=== PATIENT | male | born 1960 | race Caucasian/White ===

== ENCOUNTER → 2016-05-14 | Outpatient (CLI) | payer BC ==
[2016-05-14 13:35] LABS: ABSOLUTE LYMPHOCYTES (AUTO) 1.2 10^3/uL (0.5-4.7); ABSOLUTE MONOCYTES (AUTO) 1.2 10^3/uL (0.1-1.4); ABSOLUTE NEUT (AUTO) 7.7 10^3/uL (1.7-8.2); BASOPHILS % (AUTO) 0.2 % (0-2); EOSINOPHILS % (AUTO) 0.4 % (0-6); HEMATOCRIT 45.7 % (37.9-51.0); HEMOGLOBIN 15.5 g/dL (13.5-17.0); HGB HCT DIFFERENCE 0.8; LYMPHOCYTES % (AUTO) 12.3 % (13-45); MEAN CORPUSCULAR HEMOGLOBIN 30.1 pg (27.0-33.4); MEAN CORPUSCULAR HGB CONC 33.9 g/dL (32.0-36.0); MEAN CORPUSCULAR VOLUME 89 fl (80-97); MONOCYTES % (AUTO) 11.7 % (3-13); RED BLOOD COUNT 5.14 10^6/uL (4.35-5.55); RED CELL DISTRIBUTION WIDTH 13.3 % (11.5-14.0); SEGMENTED NEUTROPHILS % (AUTO) 75.4 % (42-78); WHITE BLOOD COUNT 10.2 10^3/uL (4.0-10.5)
[2016-05-14 13:47] LABS: ALANINE AMINOTRANSFERASE 38 U/L (21-72); ALBUMIN 4.4 g/dL (3.5-5.0); ALKALINE PHOSPHATASE 88 U/L (38-126); AMYLASE 55 U/L (30-110); ANION GAP 15 (5-19); ASPARTATE AMINO TRANSFERASE 22 U/L (17-59); BILIRUBIN,TOTAL 1.2 mg/dL (0.2-1.3); BLOOD UREA NITROGEN 13 mg/dL (7-20); CALCIUM 9.7 mg/dL (8.4-10.2); CARBON DIOXIDE 26 mmol/L (22-30); CHLORIDE 100 mmol/L (98-107); CREATININE RESULT 1.01 mg/dL (0.52-1.25); GLUCOSE 97 mg/dL (75-110); POTASSIUM 4.3 mmol/L (3.6-5.0); SODIUM 141.4 mmol/L (137-145); TOTAL PROTEIN 7.2 g/dL (6.3-8.2)
== END ==
LOC: OD 12:51
PROVIDERS: ATTEND Internal Medicine
DX: R10.13 Epigastric pain (principal)
CPT/HCPCS: 36415; 80053; 82150; 83690; 85025

== ENCOUNTER 2016-05-15 11:39 | Inpatient (IN) | payer BC ==
--- NOTE | 2016-05-15 12:09 | ER Document Report ---
ED Medical Screen (RME) - General Stated Complaint: ABDOMINAL PAIN Notes: 55 yo male c/o mid abdominal pain radiating through to back since Friday. no n/v, no fever. pt has MRI and blood work done yesterday, showing thrombus in right portal vein. sent to ED by Dr Walters for further evaluation. waiting for referral for Dr jha TRAVEL OUTSIDE OF THE [place] IN LAST 30 DAYS: No - Related Data Allergies/Adverse Reactions: No Known Allergies Allergy (Unverified 05/15/16 12:01) Physical Exam - Vital signs Vitals: Temp Pulse Resp BP Pulse Ox 98.4 F 107 H 16 133/87 H 98 05/15/16 11:55 05/15/16 11:55 05/15/16 11:55 05/15/16 11:55 05/15/16 11:55 Course - Vital Signs Vital signs: Temp Pulse Resp BP Pulse Ox 98.4 F 107 H 16 133/87 H 98 05/15/16 11:55 05/15/16 11:55 05/15/16 11:55 05/15/16 11:55 05/15/16 11:55
--- NOTE | 2016-05-15 14:10 | ER Document Report ---
[id number] OF THE [place] IN LAST 30 DAYS: No - HPI Patient complains to provider of: RLQ Abdominal Pain Onset: Other - 05/11/2016 Onset/Duration: Gradual, Worse Associated symptoms: denies: Diarrhea, Fever, Nausea, Vomiting Recently seen / treated by doctor: Yes - Dr. Walters <YANDEL BORGES - Last Filed: 05/16/16 00:31> <MARLON VALADEZ - Last Filed: 05/20/16 13:15> - General Chief Complaint: Abdominal Pain Stated Complaint: ABDOMINAL PAIN Notes: Patient is a 55-year-old male, with history of DVT, sent over to the emergency department by his primary care physician after having a CT scan that showed possible blood clot in an artery attaching to his liver. The initial plan was to send patient to Dr. Don, but there were no available appointments coming up. Patient states that Friday he began having abdominal pain in his right lower quadrant, and it has been progressively worsening. Patient's states that the pain has actually been going on for the past 3-4 weeks because he has been complaining about stomach pain when he eats. Patient denies nausea, vomiting, diarrhea, or fever, but patient's mentions that he had blood in his bowels approximately two weeks ago. Patient states that 3 kidney stones were found on the CT scan yesterday, and he is experiencing mild flank pain. Patient has not eaten for the past 2-3 days. (YANDEL BORGES) - Related Data Allergies/Adverse Reactions: No Known Allergies Allergy (Unverified 05/15/16 12:01) Past Medical History - General Information source: Patient - Social History Smoking Status: Never Smoker Chew tobacco use (# tins/day): No Frequency of alcohol use: None Drug Abuse: None Family History: Reviewed & Not Pertinent Patient has suicidal ideation: No Patient has homicidal ideation: No - Past Medical History Cardiac Medical History: Reports: Hx DVT Renal/ Medical History: Denies: Hx Peritoneal Dialysis Past Surgical History: Reports: Hx Inguinal Hernia - x2 - Immunizations Hx Diphtheria, Pertussis, Tetanus Vaccination: No <YANDEL BORGES - Last Filed: 05/16/16 00:31> Review of Systems - Review of Systems Constitutional: No symptoms reported. denies: Fever EENT: No symptoms reported Cardiovascular: No symptoms reported Respiratory: No symptoms reported Gastrointestinal: See HPI, Abdominal pain - RLQ, Blood streaked bowels - 2 weeks ago, Poor appetite. denies: Diarrhea, Nausea, Vomiting Genitourinary: No symptoms reported Male Genitourinary: No symptoms reported Musculoskeletal: No symptoms reported Skin: No symptoms reported Hematologic/Lymphatic: No symptoms reported Neurological/Psychological: No symptoms reported -: Yes All other systems reviewed and negative <YANDEL BORGES - Last Filed: 05/16/16 00:31> Physical Exam - Vital signs Interpretation: Tachycardic - General General appearance: Alert - HEENT Head: Normocephalic, Atraumatic Eyes: Normal Pupils: PERRL - Respiratory Respiratory status: No respiratory distress Chest status: Nontender Breath sounds: Normal Chest palpation: Normal - Cardiovascular Rhythm: Regular Heart sounds: Normal auscultation Murmur: No - Abdominal Distension: No distension Bowel sounds: Normal Tenderness: Tender - Tenderness over RLQ with no guarding, rebound, or rigidity.. No: Guarding, Rebound Organomegaly: No organomegaly - Back Back: CVA tenderness - Mild - Extremities General upper extremity: Normal inspection General lower extremity: Normal inspection - Neurological Neuro grossly intact: Yes Cognition: Normal Orientation: AAOx4 [place] Coma Scale Eye Opening: Spontaneous [place] Coma Scale Verbal: Oriented Keith Coma Scale Motor: Obeys Commands [place] Coma Scale Total: 15 Speech: Normal - Psychological Associated symptoms: Normal affect, Normal mood - Skin Skin Temperature: Warm Skin Moisture: Dry Skin Color: Normal <YANDEL BORGES - Last Filed: 05/16/16 00:31> Course - Laboratory Result Diagrams: 05/15/16 15:50 05/15/16 15:50 - Consults [facility] Time consulted: 17:27 <YANDEL BORGES - Last Filed: 05/16/16 00:31> - Laboratory Result Diagrams: 05/17/16 04:00 05/15/16 15:50 <MARLON VALADEZ - Last Filed: 05/20/16 13:15> - Re-evaluation Re-evalutation: 05/15/16 17:34 I personally performed the services described in the documentation, reviewed and edited the documentation which was dictated to my scribe in my presence, and it accurately records my words and actions. Patient presents a month spell with abdominal pain and outpatient CT scan that' s abnormal. Patient presented to his primary care physician with a week's worth of abdominal pain. CAT scan showed questionable decreased blood flow to the inferior aspect of the right lobe of the liver. And concerns for portal vein thrombosis he was supposed to follow up with Dr. Don they couldn't get an appointment today came to the ER instead. On exam examination he has mild right- sided tenderness no guarding rebound or rigidity I did an ultrasound which Dr. Bin Sotelo read as a superior mesentery vein thrombosis. I talked to Dr. Nathan Mcpherson said to go ahead and admit the patient on Lovenox consult the hospitalist and they'll do a hypercoagulable workup. (MARLON VALADEZ) - Vital Signs Vital signs: Temp Pulse Resp BP Pulse Ox 97.6 F 91 14 127/83 H 98 05/17/16 10:00 05/17/16 10:00 05/17/16 10:00 05/17/16 10:00 05/17/16 10:00 (YANDEL BORGES) (MARLON VALADEZ) - Laboratory Laboratory results interpreted by me: 05/15/16 05/15/16 15:10 15:50 WBC 10.8 H Lymphocytes % 11.8 L Absolute Neutrophils 8.3 H Urine Protein 100 H Urine Ketones 80 H Urine Blood SMALL H Urine Urobilinogen 2.0 H (MARLON VALADEZ) - Consults *Kuldeep Don Reason for consultation: 05/15/16 17:[address] Don about patient's ultrasound results that show clot to the superior mesenteric vein. Dr. Don recommends putting patient on Lovenox. 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
[2016-05-15] MEDS ORDERED: FENTANYL CITRATE INJ/PF 100 MCG/2 ML AMPUL IV ONE (15:05)
[2016-05-15] MEDS ORDERED: ONDANSETRON HCL INJ/PF 4 MG/2 ML SDV IV ONE (15:06)
[2016-05-15 15:25] LABS: APPEARANCE,URINE SLIGHTLY-CLOUDY; BILIRUBIN,URINE NEGATIVE (NEGATIVE); GLUCOSE, URINE NEGATIVE (NEGATIVE); KETONES,URINE 80 mg/dL (NEGATIVE); LEUKOCYTE ESTERASE,URINE NEGATIVE (NEGATIVE); NITRITE,URINE NEGATIVE (NEGATIVE); PROTEIN,URINE 100 mg/dL (NEGATIVE); URINE SPECIFIC GRAVITY 1.033
[2016-05-15 16:22] LABS: ABSOLUTE LYMPHOCYTES (AUTO) 1.3 10^3/uL (0.5-4.7); ABSOLUTE MONOCYTES (AUTO) 1.2 10^3/uL (0.1-1.4); ABSOLUTE NEUT (AUTO) 8.3 10^3/uL (1.7-8.2); BASOPHILS % (AUTO) 0.2 % (0-2); EOSINOPHILS % (AUTO) 0.5 % (0-6); HEMOGLOBIN 15.3 g/dL (13.5-17.0); HGB HCT DIFFERENCE 1.9; LYMPHOCYTES % (AUTO) 11.8 % (13-45); MEAN CORPUSCULAR HEMOGLOBIN 30.5 pg (27.0-33.4); MEAN CORPUSCULAR HGB CONC 34.7 g/dL (32.0-36.0); MEAN CORPUSCULAR VOLUME 88 fl (80-97); MONOCYTES % (AUTO) 10.6 % (3-13); RED CELL DISTRIBUTION WIDTH 13.2 % (11.5-14.0); SEGMENTED NEUTROPHILS % (AUTO) 76.9 % (42-78); WHITE BLOOD COUNT 10.8 10^3/uL (4.0-10.5)
[2016-05-15 16:41] LABS: ALANINE AMINOTRANSFERASE 34 U/L (21-72); ALBUMIN 4.3 g/dL (3.5-5.0); ALKALINE PHOSPHATASE 85 U/L (38-126); ANION GAP 14 (5-19); ASPARTATE AMINO TRANSFERASE 23 U/L (17-59); BILIRUBIN,TOTAL 1.1 mg/dL (0.2-1.3); BLOOD UREA NITROGEN 16 mg/dL (7-20); CALCIUM 9.5 mg/dL (8.4-10.2); CARBON DIOXIDE 26 mmol/L (22-30); CHLORIDE 101 mmol/L (98-107); CREATININE RESULT 0.99 mg/dL (0.52-1.25); GLUCOSE 90 mg/dL (75-110); LIPASE 109.9 U/L (23-300); POTASSIUM 4.2 mmol/L (3.6-5.0); SODIUM 140.5 mmol/L (137-145); TOTAL PROTEIN 7.6 g/dL (6.3-8.2)
[2016-05-15 18:30] LABS: PROTHROMBIN TIME 13.9 SEC (11.4-15.4)
--- NOTE | 2016-05-15 18:34 | PDOC H&P ---
History of Present Illness Admission Date/PCP: 05/15/16 18:02 NOAH LEWIS MD Patient complains of: Abdomen pain History of Present Illness: VISHAL GOODWIN is a 55 year old male with history of DVT, sent over to the emergency department by his primary care physician after having a CT scan that showed possible blood clot in an artery attaching to his liver. The initial plan was to send patient to Dr. Don, but there were no available appointments coming up. Patient states that Friday he began having abdominal pain in his right lower quadrant, and it has been progressively worsening. Patient's states that the pain has actually been going on for the past 3-4 weeks because he has been complaining about stomach pain when he eats. Patient denies nausea, vomiting, diarrhea, or fever, but patient's mentions that he had blood in his bowels approximately two weeks ago. Patient states that 3 kidney stones were found on the CT scan yesterday, and he is experiencing mild flank pain. Patient has not eaten for the past 2-3 days. Doppler ultrasound of the abdomen was performed in the emergency room and was consistent with main portal and superior mesenteric vein thrombosis Dr. Sr was consulted Lovenox subcutaneous was initiated at 1 mg per KG, and patient was admitted under hospitalist service to medical unit Past Medical History Cardiac Medical History: Reports: DVT Social History Smoking Status: Never Smoker Frequency of Alcohol Use: None Hx Recreational Drug Use: No - Advance Directive Resuscitation Status: Full Code Surrogate healthcare decision maker:: girlfriend Julianna Villa Family History Parental Family History Reviewed: Yes - father deceised diabetes "clots in legs " Children Family History Reviewed: Yes Sibling(s) Family History Reviewed.: Yes - one brother healthy Medication/Allergy Allergies/Adverse Reactions: No Known Allergies Allergy (Unverified 05/15/16 12:01) Review of Systems Constitutional: ABSENT: chills, fever(s), headache(s), weight gain, weight loss Eyes: ABSENT: visual disturbances Ears: ABSENT: hearing changes Cardiovascular: ABSENT: chest pain, dyspnea on exertion, edema, orthropnea, palpitations Respiratory: ABSENT: cough, hemoptysis Gastrointestinal: PRESENT: as per HPI, abdominal pain. ABSENT: diarrhea, hematemesis, hematochezia, nausea, vomiting Genitourinary: ABSENT: dysuria, hematuria Musculoskeletal: ABSENT: joint swelling Integumentary: ABSENT: rash, wounds Neurological: ABSENT: abnormal gait, abnormal speech, confusion, dizziness, focal weakness, syncope Psychiatric: ABSENT: anxiety, depression, homidical ideation, suicidal ideation Endocrine: ABSENT: cold intolerance, heat intolerance, polydipsia, polyuria Hematologic/Lymphatic: ABSENT: easy bleeding, easy bruising Physical Exam Vital Signs: Temp Pulse Resp BP Pulse Ox 98.4 F 107 H 16 133/87 H 98 05/15/16 11:55 05/15/16 11:55 05/15/16 11:55 05/15/16 11:55 05/15/16 11:55 General appearance: PRESENT: no acute distress, well-developed, well-nourished Head exam: PRESENT: atraumatic, normocephalic Eye exam: PRESENT: conjunctiva pink, EOMI, PERRLA. ABSENT: scleral icterus Ear exam: PRESENT: normal external ear exam Mouth exam: PRESENT: moist, tongue midline Neck exam: ABSENT: carotid bruit, JVD, lymphadenopathy, thyromegaly Respiratory exam: PRESENT: clear to auscultation delfino. ABSENT: rales, rhonchi, wheezes Cardiovascular exam: PRESENT: RRR. ABSENT: diastolic murmur, rubs, systolic murmur Pulses: PRESENT: normal dorsalis pedis pul Vascular exam: PRESENT: normal capillary refill GI/Abdominal exam: PRESENT: normal bowel sounds, soft. ABSENT: distended, guarding, mass, organolmegaly, rebound, tenderness Rectal exam: PRESENT: deferred Extremities exam: PRESENT: full ROM. ABSENT: calf tenderness, clubbing, pedal edema Neurological exam: PRESENT: alert, awake, oriented to person, oriented to place , oriented to time, oriented to situation, CN II-XII grossly intact. ABSENT: motor sensory deficit Psychiatric exam: PRESENT: appropriate affect, normal mood. ABSENT: homicidal ideation, suicidal ideation Skin exam: PRESENT: dry, intact, warm. ABSENT: cyanosis, rash Results Laboratory Results: Laboratory WBC 10.8 10^3/uL (4.0-10.5) H 05/15/16 15:50 RBC 5.00 10^6/uL (4.35-5.55) 05/15/16 15:50 Hgb 15.3 g/dL (13.5-17.0) 05/15/16 15:50 Hct 44.0 % (37.9-51.0) 05/15/16 15:50 MCV 88 fl (80-97) 05/15/16 15:50 MCH 30.5 pg (27.0-33.4) 05/15/16 15:50 MCHC 34.7 g/dL (32.0-36.0) 05/15/16 15:50 RDW 13.2 % (11.5-14.0) 05/15/16 15:50 Plt Count 182 10^3/uL (150-450) 05/15/16 15:50 Seg Neutrophils % 76.9 % (42-78) 05/15/16 15:50 Lymphocytes % 11.8 % (13-45) L 05/15/16 15:50 Monocytes % 10.6 % (3-13) 05/15/16 15:50 Eosinophils % 0.5 % (0-6) 05/15/16 15:50 Basophils % 0.2 % (0-2) 05/15/16 15:50 Absolute Neutrophils 8.3 10^3/uL (1.7-8.2) H 05/15/16 15:50 Absolute Lymphocytes 1.3 10^3/uL (0.5-4.7) 05/15/16 15:50 Absolute Monocytes 1.2 10^3/uL (0.1-1.4) 05/15/16 15:50 Absolute Eosinophils 0.0 10^3/uL (0.0-0.6) 05/15/16 15:50 Absolute Basophils 0.0 10^3/uL (0.0-0.2) 05/15/16 15:50 Sodium 140.5 mmol/L (137-145) 05/15/16 15:50 Potassium 4.2 mmol/L (3.6-5.0) 05/15/16 15:50 Chloride 101 mmol/L (98-107) 05/15/16 15:50 Carbon Dioxide 26 mmol/L (22-30) 05/15/16 15:50 Anion Gap 14 (5-19) 05/15/16 15:50 BUN 16 mg/dL (7-20) 05/15/16 15:50 Creatinine 0.99 mg/dL (0.52-1.25) 05/15/16 15:50 Est GFR ( Amer) > 60 (>60) 05/15/16 15:50 Est GFR (Non-Af Amer) > 60 (>60) 05/15/16 15:50 Glucose 90 mg/dL (75-110) 05/15/16 15:50 Calcium 9.5 mg/dL (8.4-10.2) 05/15/16 15:50 Total Bilirubin 1.1 mg/dL (0.2-1.3) 05/15/16 15:50 Direct Bilirubin 0.0 mg/dL (0.0-0.3) 05/15/16 15:50 AST 23 U/L (17-59) 05/15/16 15:50 ALT 34 U/L (21-72) 05/15/16 15:50 Alkaline Phosphatase 85 U/L (38-126) 05/15/16 15:50 Total Protein 7.6 g/dL (6.3-8.2) 05/15/16 15:50 Albumin 4.3 g/dL (3.5-5.0) 05/15/16 15:50 Lipase 109.9 U/L (23-300) 05/15/16 15:50 Urine Color DARK YELLOW 05/15/16 15:10 Urine Appearance SLIGHTLY-CLOUDY 05/15/16 15:10 Urine pH 5.0 (5.0-9.0) 05/15/16 15:10 Ur Specific [place] 1.033 05/15/16 15:10 Urine Protein 100 mg/dL (NEGATIVE) H 05/15/16 15:10 Urine Glucose (UA) NEGATIVE mg/dL (NEGATIVE) 05/15/16 15:10 Urine Ketones 80 mg/dL (NEGATIVE) H 05/15/16 15:10 Urine Blood SMALL (NEGATIVE) H 05/15/16 15:10 Urine Nitrite NEGATIVE (NEGATIVE) 05/15/16 15:10 Urine Bilirubin NEGATIVE (NEGATIVE) 05/15/16 15:10 Urine Urobilinogen 2.0 mg/dL (<2.0) H 05/15/16 15:10 Ur Leukocyte Esterase NEGATIVE (NEGATIVE) 05/15/16 15:10 Urine WBC (Auto) 4 /HPF 05/15/16 15:10 Urine RBC (Auto) 1 /HPF 05/15/16 15:10 U Hyaline Cast (Auto) 2 /LPF 05/15/16 15:10 Urine Bacteria (Auto) TRACE /HPF 05/15/16 15:10 Urine Mucus (Auto) MANY /LPF 05/15/16 15:10 Urine Ascorbic Acid NEGATIVE (NEGATIVE) 05/15/16 15:10 Impressions: Abdomen Ultrasound 05/15/16 15:04 IMPRESSION: There is echogenic material in the main portal vein and proximal right portal vein with hepatofugal flow present in the right portal vein, lack of color Doppler flow was identified in the main portal vein and superior mesenteric vein. 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 Assessment & Plan - Diagnosis (1) Venous thromboembolism in patient 41 to 60 years of age Is this a current diagnosis for this admission?: YesPlan: second episode patient had lower extremity DVT in past will initiate lovenox SC wup in progress (2) Hypercoagulable state Is this a current diagnosis for this admission?: YesPlan: work up ordered patient will be evaluated in am by Dr Sr - Time Time Spent: 50 to 70 Minutes - Inpatient Certification Based on my medical assessment, after consideration of the patient's comorbidities, presenting symptoms, or acuity I expect that the services needed warrant INPATIENT care.: Yes I certify that my determination is in accordance with my understanding of Medicare's requirements for reasonable and necessary INPATIENT services [42 CFR 412.3e].: Yes Medical Necessity: Need Close Monitoring Due to Risk of Patient Decompensation
[2016-05-15] MEDS ORDERED: KETOROLAC TROMETHAMINE INJ/PF 30 MG/1 ML SDV IV PRN (21:24)
[2016-05-15] MEDS ORDERED: ACETAMINOPHEN 325 MG TABLET PO PRN (21:24)
[2016-05-15] MEDS: MORPHINE SULFATE 10 MG/ML INJ IV PRN (22:00)
[2016-05-15] MEDS: ENOXAPARIN SODIUM INJ 100 MG/1 ML DISP.SYRIN SUBCUT SCH (22:00)
--- NOTE | 2016-05-16 08:18 | PDOC CONSULTATION ---
Consultation Consult Date: 05/16/16 Attending physician:: CLARICE WONG Consult reason:: Idiopathic portal vein thrombosis History of Present Illness Admission Date/PCP: 05/15/16 18:20 NOAH LEWIS MD Patient complains of: abd pain, found to have Idiopathic portal vein thrombosis History of Present Illness: 55-year-old male who was found to have idiopathic portal vein thrombosis. He has been having abdominal pain right upper quadrant and epigastric ongoing now for about 5 days, he tells me his girlfriend was mentioning that he been having pain may be longer than that, ultimately he went to see his PCP, who ordered a CT scan of the abdomen pelvis with and without contrast, this is done at Dr. Agee's office, this indicated area of decreased flow in the inferior aspect of the right liver, concern of portal vein thrombosis, there is no mass noted anywhere, there didn't seem to be any evidence of cancer, however there is some fullness of the pancreatic head. He hasn't had any weight loss over the last year. However over the last 5 days he does remember the pain was somewhat postprandial. He has had a superficial vein thrombosis in 2016 and was treated with a 3 month course of Eliquis, he had subsequent ultrasound which indicated complete clearing of the thrombosis. He wasn't on any blood thinner and he presented today. Here, abdominal ultrasound with Doppler was done, this did confirm the portal vein thrombosis, liver looks normal in appearance. There is no other abnormality noted. Of note, he is a never drinker never smoker. Past Medical History Cardiac Medical History: Reports: DVT Past Surgical History Past Surgical History: Reports: Herniorrhaphy Social History Smoking Status: Never Smoker Frequency of Alcohol Use: None Hx Recreational Drug Use: No Hx Prescription Drug Abuse: No - Advance Directive Resuscitation Status: Full Code Family History Family History: Reviewed & Not Pertinent, Other - No thrombosis history and family Parental Family History Reviewed: Yes Children Family History Reviewed: Yes Sibling(s) Family History Reviewed.: Yes Medication/Allergy Home Medications: No Home Medications 05/15/16 Allergies/Adverse Reactions: No Known Allergies Allergy (Unverified 05/15/16 12:01) Review of Systems Constitutional: ABSENT: chills, fever(s), headache(s), weight gain, weight loss Eyes: ABSENT: visual disturbances Ears: ABSENT: hearing changes Cardiovascular: ABSENT: chest pain, dyspnea on exertion, edema, orthropnea, palpitations Respiratory: ABSENT: cough, hemoptysis Gastrointestinal: PRESENT: abdominal pain Genitourinary: ABSENT: dysuria, hematuria Musculoskeletal: ABSENT: joint swelling Integumentary: ABSENT: rash, wounds Neurological: ABSENT: abnormal gait, abnormal speech, confusion, dizziness, focal weakness, syncope Psychiatric: ABSENT: anxiety, depression, homidical ideation, suicidal ideation Endocrine: ABSENT: cold intolerance, heat intolerance, polydipsia, polyuria Hematologic/Lymphatic: ABSENT: easy bleeding, easy bruising Physical Exam Vital Signs: Temp Pulse Resp BP Pulse Ox 98.8 F 92 18 128/87 H 100 05/16/16 03:28 05/16/16 03:28 05/16/16 03:28 05/16/16 03:28 05/16/16 03:28 Intake & Output 05/15/16 05/16/16 05/17/16 06:59 06:59 06:59 Weight 86.7 kg General appearance: PRESENT: no acute distress, well-developed, well-nourished Head exam: PRESENT: atraumatic, normocephalic Eye exam: PRESENT: conjunctiva pink, EOMI, PERRLA. ABSENT: scleral icterus Ear exam: PRESENT: normal external ear exam Mouth exam: PRESENT: moist, tongue midline Neck exam: ABSENT: carotid bruit, JVD, lymphadenopathy, thyromegaly Respiratory exam: PRESENT: clear to auscultation delfino. ABSENT: rales, rhonchi, wheezes Cardiovascular exam: PRESENT: RRR. ABSENT: diastolic murmur, rubs, systolic murmur Pulses: PRESENT: normal dorsalis pedis pul Vascular exam: PRESENT: normal capillary refill GI/Abdominal exam: PRESENT: normal bowel sounds, soft. ABSENT: distended, guarding, mass, organolmegaly, rebound, tenderness Rectal exam: PRESENT: deferred Extremities exam: PRESENT: full ROM. ABSENT: calf tenderness, clubbing, pedal edema Neurological exam: PRESENT: alert, awake, oriented to person, oriented to place , oriented to time, oriented to situation, CN II-XII grossly intact. ABSENT: motor sensory deficit Psychiatric exam: PRESENT: appropriate affect, normal mood. ABSENT: homicidal ideation, suicidal ideation Skin exam: PRESENT: dry, intact, warm. ABSENT: cyanosis, rash Results Impressions: Abdomen Ultrasound 05/15/16 15:04 IMPRESSION: There is echogenic material in the main portal vein and proximal right portal vein with hepatofugal flow present in the right portal vein, lack of color Doppler flow was identified in the main portal vein and superior mesenteric vein. 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 Status: Image reviewed by me Assessment & Plan - Diagnosis (1) Portal vein thrombosis Is this a current diagnosis for this admission?: YesPlan: Idiopathic at present, I see that the hypercoagulable workup has been sent, as an outpatient I will also send for myeloproliferative workup as well as PNH workup. Continued present with Lovenox, ultimately would like to like to transition him to a newer anticoagulants such as his Xarelto or Eliquis. We can advance his diet as tolerated. Unsure of what the "fullness" in the pancreatic head means, if his pain subsides with anticoagulation alone, then we can work that up as an outpatient. However if the pain persists over the next 24-48 hours, we may want to do something like an MRCP. - Time Time Spent: Greater than 70 Minutes Critical Time spent with patient: 35 or more minutes - Inpatient Certification Based on my medical assessment, after consideration of the patient's comorbidities, presenting symptoms, or acuity I expect that the services needed warrant INPATIENT care.: Yes I certify that my determination is in accordance with my understanding of Medicare's requirements for reasonable and necessary INPATIENT services [42 CFR 412.3e].: Yes Medical Necessity: Need For IV Fluids, Need for Pain Control, Need for Surgery
[2016-05-16] MEDS: ENOXAPARIN SODIUM INJ 100 MG/1 ML DISP.SYRIN SUBCUT SCH ×2 (09:32→21:48)
--- NOTE | 2016-05-16 16:59 | PDOC PROGRESS REPORT ---
Subjective Progress Note for:: 05/16/16 Subjective:: Patient's abdominal pain has improved ,he is feeling well He has no fever no chills; a workup is being completed Patient will have an MRI of his abdomen was IV contrast today He is still on Lovenox subcutaneous to be switched tomorrow to Eliquis Physical Exam Vital Signs: Temp Pulse Resp BP Pulse Ox 98.2 F 94 14 126/74 H 100 05/16/16 15:38 05/16/16 15:38 05/16/16 15:38 05/16/16 15:38 05/16/16 15:38 Intake & Output 05/15/16 05/16/16 05/17/16 00:59 00:59 00:59 Intake Total 0 Balance 0 Weight 86.7 kg 86.7 kg General appearance: PRESENT: no acute distress, well-developed, well-nourished Head exam: PRESENT: atraumatic, normocephalic Eye exam: PRESENT: conjunctiva pink, EOMI, PERRLA. ABSENT: scleral icterus Ear exam: PRESENT: normal external ear exam Mouth exam: PRESENT: moist, tongue midline Neck exam: ABSENT: carotid bruit, JVD, lymphadenopathy, thyromegaly Respiratory exam: PRESENT: clear to auscultation delfino. ABSENT: rales, rhonchi, wheezes Cardiovascular exam: PRESENT: RRR. ABSENT: diastolic murmur, rubs, systolic murmur Pulses: PRESENT: normal dorsalis pedis pul Vascular exam: PRESENT: normal capillary refill GI/Abdominal exam: PRESENT: normal bowel sounds, soft. ABSENT: distended, guarding, mass, organolmegaly, rebound, tenderness Rectal exam: PRESENT: deferred Extremities exam: PRESENT: full ROM. ABSENT: calf tenderness, clubbing, pedal edema Neurological exam: PRESENT: alert, awake, oriented to person, oriented to place , oriented to time, oriented to situation, CN II-XII grossly intact. ABSENT: motor sensory deficit Psychiatric exam: PRESENT: appropriate affect, normal mood. ABSENT: homicidal ideation, suicidal ideation Skin exam: PRESENT: dry, intact, warm. ABSENT: cyanosis, rash Results Laboratory Results: Labs- All tests 24 hr 05/15/16 15:50 PT 13.9 INR 1.04 Labs- Entire Visit 05/15/16 05/15/16 05/15/16 15:10 15:50 15:50 WBC 10.8 H RBC 5.00 Hgb 15.3 Hct 44.0 MCV 88 MCH 30.5 MCHC 34.7 RDW 13.2 Plt Count 182 Seg Neutrophils % 76.9 Lymphocytes % 11.8 L Monocytes % 10.6 Eosinophils % 0.5 Basophils % 0.2 Absolute Neutrophils 8.3 H Absolute Lymphocytes 1.3 Absolute Monocytes 1.2 Absolute Eosinophils 0.0 Absolute Basophils 0.0 PT INR Sodium 140.5 Potassium 4.2 Chloride 101 Carbon Dioxide 26 Anion Gap 14 BUN 16 Creatinine 0.99 Est GFR ( Amer) > 60 Est GFR (Non-Af Amer) > 60 Glucose 90 Calcium 9.5 Total Bilirubin 1.1 Direct Bilirubin 0.0 AST 23 ALT 34 Alkaline Phosphatase 85 Total Protein 7.6 Albumin 4.3 Lipase 109.9 Urine Color DARK YELLOW Urine Appearance SLIGHTLY-CLOUDY Urine pH 5.0 Ur Specific [place] 1.033 Urine Protein 100 H Urine Glucose (UA) NEGATIVE Urine Ketones 80 H Urine Blood SMALL H Urine Nitrite NEGATIVE Urine Bilirubin NEGATIVE Urine Urobilinogen 2.0 H Ur Leukocyte Esterase NEGATIVE Urine WBC (Auto) 4 Urine RBC (Auto) 1 U Hyaline Cast (Auto) 2 Urine Bacteria (Auto) TRACE Urine Mucus (Auto) MANY Urine Ascorbic Acid NEGATIVE 05/15/16 15:50 WBC RBC Hgb Hct MCV MCH MCHC RDW Plt Count Seg Neutrophils % Lymphocytes % Monocytes % Eosinophils % Basophils % Absolute Neutrophils Absolute Lymphocytes Absolute Monocytes Absolute Eosinophils Absolute Basophils PT 13.9 INR 1.04 Sodium Potassium Chloride Carbon Dioxide Anion Gap BUN Creatinine Est GFR ( Amer) Est GFR (Non-Af Amer) Glucose Calcium Total Bilirubin Direct Bilirubin AST ALT Alkaline Phosphatase Total Protein Albumin Lipase Urine Color Urine Appearance Urine pH Ur Specific Franklin Urine Protein Urine Glucose (UA) Urine Ketones Urine Blood Urine Nitrite Urine Bilirubin Urine Urobilinogen Ur Leukocyte Esterase Urine WBC (Auto) Urine RBC (Auto) U Hyaline Cast (Auto) Urine Bacteria (Auto) Urine Mucus (Auto) Urine Ascorbic Acid 05/15/16 05/15/16 05/16/16 21:30 21:30 10:40 Functional Protein S Pending Free Protein S Pending Total Protein S Pending Antithrombin III Activ Pending Factor V Activity Pending Anti-Phospholip Syndrome Pending Factor II DNA Analysis Pending Fac II Additional Info Pending Impressions: Abdomen Ultrasound 05/15/16 15:04 IMPRESSION: There is echogenic material in the main portal vein and proximal right portal vein with hepatofugal flow present in the right portal vein, lack of color Doppler flow was identified in the main portal vein and superior mesenteric vein. 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 Assessment & Plan - Diagnosis (1) Venous thromboembolism in patient 41 to 60 years of age Is this a current diagnosis for this admission?: Yes (2) Hypercoagulable state Is this a current diagnosis for this admission?: Yes - Time Time Spent with patient: Continue Lovenox we will initiate Eliquis in a.m. and discharge patient if stable to follow-up with Dr. Sr Time Spent with patient: 15-24 minutes
[2016-05-16] MEDS: MORPHINE SULFATE 10 MG/ML INJ IV PRN (19:06)
[2016-05-17 05:00] LABS: HEMATOCRIT 41.8 % (37.9-51.0); HEMOGLOBIN 14.3 g/dL (13.5-17.0); HGB HCT DIFFERENCE 1.1; MEAN CORPUSCULAR HEMOGLOBIN 30.2 pg (27.0-33.4); MEAN CORPUSCULAR HGB CONC 34.3 g/dL (32.0-36.0); MEAN CORPUSCULAR VOLUME 88 fl (80-97); RED BLOOD COUNT 4.75 10^6/uL (4.35-5.55); WHITE BLOOD COUNT 7.2 10^3/uL (4.0-10.5)
--- NOTE | 2016-05-17 08:21 | PDOC PROGRESS REPORT ---
Subjective Progress Note for:: 05/17/16 Subjective:: Pt w/ post prandial pain yesterday. Feels better today Physical Exam Vital Signs: Temp Pulse Resp BP Pulse Ox 98.2 F 94 14 126/74 H 100 05/16/16 15:38 05/16/16 15:38 05/16/16 15:38 05/16/16 15:38 05/16/16 15:38 Intake & Output 05/16/16 05/17/16 05/18/16 06:59 06:59 06:59 Intake Total 490 Balance 490 Weight 86.7 kg 85.9 kg General appearance: PRESENT: no acute distress, well-developed, well-nourished Head exam: PRESENT: atraumatic, normocephalic Eye exam: PRESENT: conjunctiva pink, EOMI, PERRLA. ABSENT: scleral icterus Ear exam: PRESENT: normal external ear exam Mouth exam: PRESENT: moist, tongue midline Neck exam: ABSENT: carotid bruit, JVD, lymphadenopathy, thyromegaly Respiratory exam: PRESENT: clear to auscultation delfino. ABSENT: rales, rhonchi, wheezes Cardiovascular exam: PRESENT: RRR. ABSENT: diastolic murmur, rubs, systolic murmur Pulses: PRESENT: normal dorsalis pedis pul Vascular exam: PRESENT: normal capillary refill GI/Abdominal exam: PRESENT: normal bowel sounds, soft. ABSENT: distended, guarding, mass, organolmegaly, rebound, tenderness Rectal exam: PRESENT: deferred Extremities exam: PRESENT: full ROM. ABSENT: calf tenderness, clubbing, pedal edema Neurological exam: PRESENT: alert, awake, oriented to person, oriented to place , oriented to time, oriented to situation, CN II-XII grossly intact. ABSENT: motor sensory deficit Psychiatric exam: PRESENT: appropriate affect, normal mood. ABSENT: homicidal ideation, suicidal ideation Skin exam: PRESENT: dry, intact, warm. ABSENT: cyanosis, rash Results Laboratory Results: 05/17/16 04:00 05/17/16 04:00 WBC 7.2 RBC 4.75 Hgb 14.3 Hct 41.8 MCV 88 MCH 30.2 MCHC 34.3 RDW 13.0 Plt Count 195 Impressions: Abdomen Ultrasound 05/15/16 15:04 IMPRESSION: There is echogenic material in the main portal vein and proximal right portal vein with hepatofugal flow present in the right portal vein, lack of color Doppler flow was identified in the main portal vein and superior mesenteric vein. 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 Abdomen MRI 05/16/16 09:46 IMPRESSION: 1. As seen on CT, there is portal vein thrombosis. Probable cavernous transformation. Fairly extensive superior mesenteric thrombosis is present as well, with associated mesenteric edema. Splenic vein patent. Homogeneous liver. 2. No pancreatic mass. Status: Image reviewed by me Assessment & Plan - Diagnosis (1) Portal vein thrombosis Is this a current diagnosis for this admission?: YesPlan: MRCP negative for pancreatic mass, just indicated extensive thrombosis, w/u pending. Ok from heme standpoint to d/c home w/ eliquis 10mg BID x 7 days then 5mg BID. Plan for further w/u as outpt. Will need opiate rx on d/c also. Today spent 30min on discussion. - Time Time Spent with patient: 25-34 minutes Critical Time spent with patient: 25-34 minutes Within: within 24 hours
[2016-05-17 08:53] VITALS: BP 127/83
[2016-05-17] MEDS ORDERED: APIXABAN 5 MG TABLET PO ONE (09:15)
--- NOTE | 2016-05-17 15:45 | PDOC DISCHARGE SUMMARY ---
General - Admit/Disc Date/PCP Admission Date/Primary Care Provider: 05/15/16 18:20 NOAH LEWIS MD Discharge Date: 05/17/16 - Discharge Diagnosis (1) Venous thromboembolism in patient 41 to 60 years of age Is this a current diagnosis for this admission?: YesSummary: Patient was treated with lovenox SC, and discharged on eliquis the abdominal pain persisted but he was able to tolerate a light diet (2) Hypercoagulable state Is this a current diagnosis for this admission?: YesSummary: work up was initiated Patient to be followed as outpatient by Dr Sr - Additional Information Resuscitation Status: Full Code Discharge Diet: As Tolerated Discharge Activity: Activity As Tolerated Home Medications: Apixaban [Eliquis] 5 mg PO BID #60 tablet 05/17/16 Apixaban [Eliquis] 10 mg PO BID #14 tablet 05/17/16 Oxycodone HCl/Acetaminophen [Percocet 5-325 mg Tablet] 1 tab PO Q4HP PRN #30 tab 05/17/16 Polyethylene Glycol 3350 [Miralax Powder 17 gm/Packet] 17 gm PO DAILY #30 powd.pack 05/17/16 Tramadol HCl [Ultram 50 mg Tablet] 50 mg PO Q6HP PRN #30 tablet 05/17/16 History of Present Illness Patient complains of: abdominal pain History of Present Illness: VISHAL GOODWIN is a 55 year old male with history of DVT, sent over to the emergency department by his primary care physician after having a CT scan that showed possible blood clot in an artery attaching to his liver. The initial plan was to send patient to Dr. Don, but there were no available appointments coming up. Patient states that Friday he began having abdominal pain in his right lower quadrant, and it has been progressively worsening. Patient's states that the pain has actually been going on for the past 3-4 weeks because he has been complaining about stomach pain when he eats. Patient denies nausea, vomiting, diarrhea, or fever, but patient's mentions that he had blood in his bowels approximately two weeks ago. Patient states that 3 kidney stones were found on the CT scan yesterday, and he is experiencing mild flank pain. Patient has not eaten for the past 2-3 days. Doppler ultrasound of the abdomen was performed in the emergency room and was consistent with main portal and superior mesenteric vein thrombosis Dr. Sr was consulted Lovenox subcutaneous was initiated at 1 mg per KG, and patient was admitted under hospitalist service to medical unit Hospital Course Hospital Course: see above Physical Exam Vital Signs: Temp Pulse Resp BP Pulse Ox 97.6 F 91 14 127/83 H 98 05/17/16 10:00 05/17/16 10:00 05/17/16 10:00 05/17/16 10:00 05/17/16 10:00 Intake & Output 05/16/16 05/17/16 05/18/16 00:59 00:59 00:59 Intake Total 490 Balance 490 Weight 86.7 kg 85.9 kg General appearance: PRESENT: no acute distress, well-developed, well-nourished Head exam: PRESENT: atraumatic, normocephalic Eye exam: PRESENT: conjunctiva pink, EOMI, PERRLA. ABSENT: scleral icterus Ear exam: PRESENT: normal external ear exam Mouth exam: PRESENT: moist, tongue midline Neck exam: ABSENT: carotid bruit, JVD, lymphadenopathy, thyromegaly Respiratory exam: PRESENT: clear to auscultation delfino. ABSENT: rales, rhonchi, wheezes Cardiovascular exam: PRESENT: RRR. ABSENT: diastolic murmur, rubs, systolic murmur Pulses: PRESENT: normal dorsalis pedis pul Vascular exam: PRESENT: normal capillary refill GI/Abdominal exam: PRESENT: normal bowel sounds, soft. ABSENT: distended, guarding, mass, organolmegaly, rebound, tenderness Rectal exam: PRESENT: deferred Extremities exam: PRESENT: full ROM. ABSENT: calf tenderness, clubbing, pedal edema Neurological exam: PRESENT: alert, awake, oriented to person, oriented to place , oriented to time, oriented to situation, CN II-XII grossly intact. ABSENT: motor sensory deficit Psychiatric exam: PRESENT: appropriate affect, normal mood. ABSENT: homicidal ideation, suicidal ideation Skin exam: PRESENT: dry, intact, warm. ABSENT: cyanosis, rash Results Laboratory Results: 05/17/16 04:00 05/17/16 04:00 WBC 7.2 RBC 4.75 Hgb 14.3 Hct 41.8 MCV 88 MCH 30.2 MCHC 34.3 RDW 13.0 Plt Count 195 05/15/16 05/15/16 05/16/16 21:30 21:30 10:40 Functional Protein S Pending Free Protein S Pending Total Protein S Pending Antithrombin III Activ Pending Factor V Activity Pending Anti-Phospholip Syndrome Pending Factor II DNA Analysis Pending Fac II Additional Info Pending Impressions: Abdomen Ultrasound 05/15/16 15:04 IMPRESSION: There is echogenic material in the main portal vein and proximal right portal vein with hepatofugal flow present in the right portal vein, lack of color Doppler flow was identified in the main portal vein and superior mesenteric vein. 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 Abdomen MRI 05/16/16 09:46 IMPRESSION: 1. As seen on CT, there is portal vein thrombosis. Probable cavernous transformation. Fairly extensive superior mesenteric thrombosis is present as well, with associated mesenteric edema. Splenic vein patent. Homogeneous liver. 2. No pancreatic mass. Plan Discharge Plan: discharged home Follow up with Dr Sr
[2016-05-17 21:07] LABS: PROTEIN S FREE 97 % (57-157)
[2016-05-18 11:29] LABS: PROTEIN S FUNCTIONAL 77 % (63-140); PROTEIN S TOTAL 194 % (60-150)
[2016-05-19 07:50] LABS: ANTITHROMBIN III ACTIVITY 101 % (75-135); FACTOR V ACTIVITY 107 % (70-150)
== END 2016-05-17 10:30 | disposition home or self-care (01) | DRG 442 ==
LOC: ER 11:39 → UNDOADMIN 18:02 → EH 18:02 → 5 22:52
PROVIDERS: ADMIT Emergency Medicine; ATTEND Emergency Medicine
DX: I81 Portal vein thrombosis (principal); D68.59 Other primary thrombophilia; Z86.718 Personal history of other venous thrombosis and embolism; N20.0 Calculus of kidney
CPT/HCPCS: 36415; 74183; 76705; 80053; 81001; 81240; 83690; 85025; 85027; 85220; 85300; 85305; 85306; 85597; 85598; 85610; 85613; 85730; 85732; 86146; 86147; 86148; 86849; 93976; 96374; 96375; 99285; A9576; J1650; J2270; J2405; J3010

== ENCOUNTER → 2018-09-24 | Outpatient (CLI) | payer BC ==
--- NOTE | 2018-09-24 16:11 | RADIOLOGY REPORT (SQ) ---
EXAM DESCRIPTION: VENOUS UNILATERAL LOWER COMPLETED DATE/TIME: 09/24/2018 2:38 pm REASON FOR STUDY: LLE SWELLING, HX OF PORTAL V THROMBOSIS I81 PORTAL VEIN THROMBOSIS COMPARISON: None. TECHNIQUE: Dynamic and static last scale and color images acquired of the left leg venous system. Se lected spectral images acquired with additional compression and augmentation maneuvers. The contralat eral common femoral vein and saphenofemoral junction were also imaged. Images stored on PACS. LIMITATIONS: None. FINDINGS: LEFT COMMON FEMORAL: Normal phasicity, compression and augmentation. No visualized echogenic material on g ray scale. No defects on color images. FEMORAL: Normal compression and augmentation. No visualized echogenic material on last scale. No defe cts on color images. POPLITEAL: Normal compression, augmentation. No visualized echogenic material on last scale. No defec ts on color images. POSTERIOR TIBIAL AND PERONEAL VEINS: Normal compression, augmentation. No visualized echogenic materi al on last scale. No defects on color images. GSV and SSV: Normal compression, augmentation. No visualized echogenic material on last scale. No def ects on color images. ANY DEEP VENOUS INSUFFICIENCY: Not evaluated. ANY EVIDENCE OF POPLITEAL CYST: No. OTHER: Patient indicates a tender palpable abnormality in the medial left thigh. Ultrasound of this area demonstrates a superficial varicosity with reflux on Valsalva. No superficial venous thrombophl ebitis. RIGHT COMMON FEMORAL VEIN AND SAPHENOFEMORAL JUNCTION: Normal phasicity, compression and augmentation. No visualized echogenic material on last scale. No de fects on color images. IMPRESSION: NO EVIDENCE OF DVT OR SVT IN THE LEFT LEG. AREA OF CONCERN IN THE LEFT MID THIGH IS NOT DILATED SUPERFICIAL VARICOSITY WITH REFLUX ON VALSALVA. NO SUPERFICIAL THROMBOPHLEBITIS. TECHNICAL DOCUMENTATION: JOB ID: [id number] [employer]- All Rights Reserved Reading location - IP/workstation name: [email or web address]
== END ==
LOC: SP 13:32
PROVIDERS: ATTEND Internal Medicine
DX: I81 Portal vein thrombosis (principal)
CPT/HCPCS: 93971

== ENCOUNTER 2019-05-30 12:05 | Emergency (ER) | payer BC ==
[2019-05-30] MEDS ORDERED: ONDANSETRON HCL INJ/PF 4 MG/2 ML SDV IV ONE ×2 (12:22→14:09)
[2019-05-30] MEDS ORDERED: KETOROLAC TROMETHAMINE INJ/PF 30 MG/1 ML SDV IV ONE ×2 (12:22→15:00)
--- NOTE | 2019-05-30 12:26 | ER Document Report ---
ED Medical Screen (RME) - General Chief Complaint: Flank Pain Stated Complaint: FLANK PAIN Time Seen by Provider: 05/30/19 12:17 Primary Care Provider: MICHELA CANALES MD [Primary Care Provider] - Follow up as needed Notes: Patient is a 58-year-old male who presents emergency department with a chief complaint of left flank pain. Patient reports he saw his primary care physician on and was told that he had an white blood cells and no blood in his urine. Patient was placed on Levaquin. Patient reports that yesterday he started to feel better but then today woke up with the excruciating left flank pain. Patient denies abdominal pain. Patient reports nausea without vomiting or diarrhea. Patient reports the pain is constant and stabbing. Patient reports 20+ years ago he had similar type pain and was diagnosed with kidney stones. Patient denies difficulty urinating. TRAVEL OUTSIDE OF THE [place] IN LAST 30 DAYS: No - Related Data Allergies/Adverse Reactions: No Known Allergies Allergy (Unverified 05/15/16 12:01) Past Medical History - Past Medical History Cardiac Medical History: Reports: Hx DVT Renal/ Medical History: Denies: Hx Peritoneal Dialysis Past Surgical History: Reports: Hx Abdominal Surgery - Hernia repair, Hx Herniorrhaphy, Hx Inguinal Hernia - x2 - Immunizations Hx Diphtheria, Pertussis, Tetanus Vaccination: No Physical Exam - Vital signs Vitals: Pulse Resp BP Pulse Ox 60 18 155/75 H 100 05/30/19 12:12 05/30/19 12:12 05/30/19 12:12 05/30/19 12:12 - Respiratory Respiratory status: No respiratory distress Chest status: Nontender Breath sounds: Normal Chest palpation: Normal - Back Back: Normal Notes: + left cva tenderness. Course - Re-evaluation Re-evalutation: 05/30/19 12:25 I have greeted and performed a rapid initial assessment of this patient. A comprehensive ED assessment and evaluation of the patient, analysis of test results and completion of the medical decision making process will be conducted by additional ED providers. - Vital Signs Vital signs: Temp Pulse Resp BP Pulse Ox 60 18 155/75 H 100 05/30/19 12:12 05/30/19 12:12 05/30/19 12:12 05/30/19 12:12 Doctor's Discharge - Discharge Referrals: MICHELA CANALES MD [Primary Care Provider] - Follow up as needed
[2019-05-30 13:06] LABS: ABSOLUTE LYMPHOCYTES (AUTO) 1.1 10^3/uL (0.5-4.7); ABSOLUTE MONOCYTES (AUTO) 0.5 10^3/uL (0.1-1.4); ABSOLUTE NEUT (AUTO) 7.9 10^3/uL (1.7-8.2); BASOPHILS % (AUTO) 0.2 % (0-2); EOSINOPHILS % (AUTO) 0.5 % (0-6); HEMATOCRIT 47.9 % (37.9-51.0); HEMOGLOBIN 16.5 g/dL (13.5-17.0); MEAN CORPUSCULAR HEMOGLOBIN 30.4 pg (27.0-33.4); MEAN CORPUSCULAR HGB CONC 34.4 g/dL (32.0-36.0); MEAN CORPUSCULAR VOLUME 88 fl (80-97); MONOCYTES % (AUTO) 5.7 % (3-13); PLATELET COUNT 185 10^3/uL (150-450); RED BLOOD COUNT 5.42 10^6/uL (4.35-5.55); RED CELL DISTRIBUTION WIDTH 13.7 % (11.5-14.0); SEGMENTED NEUTROPHILS % (AUTO) 82.6 % (42-78); TOTAL CELLS COUNTED % (AUTO) 100 %; WHITE BLOOD COUNT 9.6 10^3/uL (4.0-10.5)
[2019-05-30 13:26] LABS: ALBUMIN 4.7 g/dL (3.5-5.0); ALKALINE PHOSPHATASE 71 U/L (38-126); ANION GAP 11 (5-19); ASPARTATE AMINO TRANSFERASE 35 U/L (17-59); BILIRUBIN,DIRECT 0.3 mg/dL (0.0-0.4); BILIRUBIN,TOTAL 0.7 mg/dL (0.2-1.3); BLOOD UREA NITROGEN 19 mg/dL (7-20); CALCIUM 9.7 mg/dL (8.4-10.2); CARBON DIOXIDE 27 mmol/L (22-30); CHLORIDE 103 mmol/L (98-107); GLUCOSE 106 mg/dL (75-110); POTASSIUM 4.1 mmol/L (3.6-5.0); TOTAL PROTEIN 8.3 g/dL (6.3-8.2)
[2019-05-30 13:27] LABS: APPEARANCE,URINE SLIGHTLY-CLOUDY; BILIRUBIN,URINE NEGATIVE (NEGATIVE); COLOR,URINE YELLOW; GLUCOSE, URINE NEGATIVE (NEGATIVE); KETONES,URINE NEGATIVE (NEGATIVE); LEUKOCYTE ESTERASE,URINE NEGATIVE (NEGATIVE); NITRITE,URINE NEGATIVE (NEGATIVE); PROTEIN,URINE NEGATIVE (NEGATIVE); URINE SPECIFIC GRAVITY 1.026; UROBILINOGEN,URINE NEGATIVE mg/dL (<2.0)
--- NOTE | 2019-05-30 13:43 | RADIOLOGY REPORT (SQ) ---
EXAM DESCRIPTION: CT ABD/PELVIS NO ORAL OR IV COMPLETED DATE/TIME: 05/30/2019 1:10 pm REASON FOR STUDY: Left flank pain, hx kidney stones COMPARISON: None. TECHNIQUE: CT scan of the abdomen and pelvis performed without intravenous or oral contrast. Images reviewed with lung, soft tissue, and bone windows. Reconstructed coronal and sagittal MPR images revi ewed. All images stored on PACS. All CT scanners at this facility use dose modulation, iterative reconstruction, and/or weight based d osing when appropriate to reduce radiation dose to as low as reasonably achievable (ALARA). [facility]: Dose Right [facility]: CareDose [facility]: Dose Right [facility]: Teradose 4D [facility]: Smart Tripbirds RADIATION DOSE: CT Rad equipment meets quality standard of care and radiation dose reduction techniq ues were employed. CTDIvol: 8.1 mGy. DLP: 463 mGy-cm.mGy. LIMITATIONS: None. FINDINGS: LOWER CHEST: No significant findings. No nodules or infiltrates. NON-CONTRASTED LIVER, SPLEEN, ADRENALS: Evaluation limited by lack of IV contrast. No identified sign ificant masses. PANCREAS: No masses. No peripancreatic inflammatory changes. GALLBLADDER: No identified stones by CT criteria. No inflammatory changes to suggest cholecystitis. RIGHT KIDNEY AND URETER: No suspicious masses. Assessment limited by lack of IV contrast. No signif icant calcifications. No hydronephrosis or hydroureter. LEFT KIDNEY AND URETER: No suspicious masses. Assessment limited by lack of IV contrast. 5 mm calcu kati in the proximal ureter. Moderate hydronephrosis. AORTA AND RETROPERITONEUM: No aneurysm. No retroperitoneal masses or adenopathy. BOWEL AND PERITONEAL CAVITY: No obvious masses or inflammatory changes. No free fluid. APPENDIX: Normal. PELVIS, BLADDER, AND ABDOMINAL WALL:No abnormal masses. No free fluid. Bladder normal. BONES: No significant findings. OTHER: No other significant finding. IMPRESSION: 5 MM CALCULUS IN THE PROXIMAL LEFT URETER. MODERATE HYDRONEPHROSIS. NO OTHER SIGNIFICA NT OR ACUTE PROCESS IN THE ABDOMEN OR PELVIS. COMMENT: Quality ID # [id number]: Final reports with documentation of one or more dose reduction techniques (e.g., Automated exposure control, adjustment of the mA and/or kV according to patient size, use of iterative reconstruction technique) TECHNICAL DOCUMENTATION: JOB ID: [id number] [employer]- All Rights Reserved Reading location - IP/workstation name: [email or web address]
[2019-05-30] MEDS ORDERED: NORMAL SALINE 1000 ML 1,000 ML IV ONE (13:45)
[2019-05-30] MEDS ORDERED: HYDROMORPHONE HCL 2 MG TABLET PO ONE (14:09)
--- NOTE | 2019-05-30 14:10 | ER Document Report ---
ED GI/ - General Chief Complaint: Flank Pain Stated Complaint: FLANK PAIN Time Seen by Provider: 05/30/19 12:17 Primary Care Provider: CAIT INGRAM MD [NO LOCAL MD] - Follow up as needed Notes: 58-year-old man presents with left flank pain which began 3 days ago. He states the pain started out mildly he was seen by his primary doctor put on antibiotics states that today the pain has worsened. TRAVEL OUTSIDE OF THE [place] IN LAST 30 DAYS: No - Related Data Allergies/Adverse Reactions: No Known Allergies Allergy (Unverified 05/15/16 12:01) Past Medical History - Social History Smoking Status: Never Smoker Family History: Reviewed & Not Pertinent, Other - No thrombosis history and family Patient has suicidal ideation: No Patient has homicidal ideation: No - Past Medical History Cardiac Medical History: Reports: Hx DVT Renal/ Medical History: Denies: Hx Peritoneal Dialysis Past Surgical History: Reports: Hx Abdominal Surgery - Hernia repair, Hx Herniorrhaphy, Hx Inguinal Hernia - x2 - Immunizations Hx Diphtheria, Pertussis, Tetanus Vaccination: No Review of Systems - Review of Systems Notes: Constitutional: Negative for fever. HENT: Negative for sore throat. Eyes: Negative for visual changes. Cardiovascular: Negative for chest pain. Respiratory: Negative for shortness of breath. Gastrointestinal: Negative for abdominal pain, vomiting or diarrhea. Genitourinary: + Left flank pain Musculoskeletal: Negative for back pain. Skin: Negative for rash. Neurological: Negative for headaches, weakness or numbness. 10 point ROS negative except as marked above and in HPI. Physical Exam - Vital signs Vitals: Pulse Resp BP Pulse Ox 60 18 155/75 H 100 05/30/19 12:12 05/30/19 12:12 05/30/19 12:12 05/30/19 12:12 - Notes Notes: PHYSICAL EXAMINATION: Physical Exam: General: Well-nourished well-developed 58-year-old man in moderate distress secondary to left flank pain HEENT: NC/AT, pupils equal round and reactive to light, MM moist,nares clear, oropharynx clear, airway patent Neck: supple, no adenopathy, no masses. Good range of motion Lungs: clear, no wheezing, no rales no rhonchi CVS: Regular rate and rhythm no murmur gallop or rub Abdomen: Soft, active, nontender, no masses, no hepatosplenomegaly Ext: No edema, clubbing or cyanosis. Neuro: Alert and responsive, moving all 4 extremities on command, cranial nerves intact, no focal findings Skin: Intact no open lesions, no rash PSYCH: Normal mood, normal affect. Course - Re-evaluation Re-evalutation: 05/30/19 14:58 Patient with a 5 mm stone in his left ureter with hydronephrosis and hydroureter. Patient is given medications of pain and nausea. Was comfortable after CT scan pain began to escalate. He is given hydromorphone 1 mg IV and Zofran with some slight improvement of pain. - Vital Signs Vital signs: Temp Pulse Resp BP Pulse Ox 97.8 F 60 18 155/75 H 100 05/30/19 12:23 05/30/19 12:12 05/30/19 12:12 05/30/19 12:12 05/30/19 12:12 - Laboratory Result Diagrams: 05/30/19 12:50 05/30/19 12:50 Laboratory results interpreted by me: 05/30/19 05/30/19 05/30/19 12:50 12:50 12:50 Lymph % (Auto) 11.0 L Seg Neutrophils % 82.6 H Total Protein 8.3 H Urine Blood LARGE H - Diagnostic Test Radiology reviewed: Image reviewed, Reports reviewed - CT abdomen and pelvis without contrast: 5 mm proximal ureteral stone with moderate hydronephrosis. Discharge - Discharge Clinical Impression: Renal colic on left side, Kidney stone left ureter Condition: Good Disposition: HOME, SELF-CARE Instructions: Antinausea Medication ([facility]), Kidney Stone ([facility]), Oral Narcotic Medication ([facility]), Toradol Injection ([facility]) Additional Instructions: Please take the medications as prescribed Zofran for nausea, [place] for pain, Flomax to improve the ureter flow. You may also use the Naprosyn every 12 hours. Please follow-up with urology, call for appointment in the a.m. (note 5 mm stone and flank pain.) Prescriptions: Tamsulosin HCl [Flomax 0.4 mg Cap.sr] 0.4 mg PO DAILY #7 cap.sr.24h Naproxen [Naprosyn] 500 mg PO BID #20 tablet Hydrocodone/Acetaminophen [[place] 5-325 mg Tablet] 1 tab PO Q6 PRN #10 tablet PRN Reason: Ondansetron [Zofran Odt 4 mg Tablet] 1 - 2 tab PO Q4H PRN #15 tab.rapdis PRN Reason: For Nausea/Vomiting Referrals: CAIT INGRAM MD [NO LOCAL MD] - Follow up as needed
[2019-05-30] MEDS ORDERED: HYDROMORPHONE HCL INJ/PF 2 MG/ML AMPULE IV ONE ×2 (14:16→15:00)
[2019-05-30] MEDS ORDERED: LORAZEPAM INJ 2 MG/1 ML VIAL IV ONE (15:00)
[2019-05-30 16:34] VITALS: BP 160/74
== END 2019-05-30 16:32 | disposition home or self-care (01) ==
LOC: ER 12:05
DX: N13.2 Hydronephrosis with renal and ureteral calculous obstruction (principal); N13.4 Hydroureter; N23 Unspecified renal colic
CPT/HCPCS: 96376; 99284; 96361; 96374; 96375; 36415; 85025; 80053; 81001; 74176; J1885; J1170; J2060; J2405; J7030

== ENCOUNTER → 2019-06-17 | Outpatient (CLI) | payer BC ==
--- NOTE | 2019-06-17 18:05 | RADIOLOGY REPORT (SQ) ---
EXAM DESCRIPTION: VENOUS UNILATERAL UPPER COMPLETED DATE/TIME: 06/17/2019 5:53 pm REASON FOR STUDY: PAIN AND SWELLING M79.609 PAIN IN UNSPECIFIED LIMB M79.89 OTHER SPECIFIED SOFT T ISSUE DISORDERS COMPARISON: None. TECHNIQUE: Dynamic and static last scale and color images acquired of the right arm venous system. S elected spectral images acquired with additional compression and augmentation maneuvers. The contrala teral subclavian vein and internal jugular vein were also imaged. Images stored on PACS. LIMITATIONS: None. FINDINGS: INTERNAL JUGULAR VEIN: Normal phasicity, compression, augmentation. No visualized echogeni c material on last scale. No defects on color images. Comparison opposite side normal. SUBCLAVIAN VEIN: Normal compression, augmentation. No visualized echogenic material on last scale. No defects on color images. AXILLARY VEIN: Normal compression, augmentation. No visualized echogenic material on last scale. No d efects on color images. BRACHIAL VEIN: Normal compression, augmentation. No visualized echogenic material on last scale. No d efects on color images. BASILIC VEIN: There is occlusive thrombus in the basilic vein. CEPHALIC VEIN: Normal compression, augmentation. No visualized echogenic material on last scale. No d efects on color images. OTHER: No other significant finding. CONTRALATERAL SUBCLAVIAN VEIN AND INTERNAL JUGULAR VEIN: Normal phasicity, compression and augmentation. No visualized echogenic material on last scale. No de fects on color images. IMPRESSION: Acute SVT in the right basilic vein in the upper arm. TECHNICAL DOCUMENTATION: JOB ID: [id number] [employer]- All Rights Reserved Reading location - IP/workstation name: [email or web address]
== END ==
LOC: SP 16:54
PROVIDERS: ATTEND Internal Medicine
DX: M79.609 Pain in unspecified limb (principal); M79.89 Other specified soft tissue disorders
CPT/HCPCS: 93971